=== PATIENT | female | born 1950 | race Caucasian/White ===

== ENCOUNTER 2024-12-31 14:26 | Emergency (ER) | payer MEDICARE, SELFPAY ==
[2024-12-31] VITALS (10 sets, daily range): BP systolic 81–118; BP diastolic 45–60; PULSE 90–99; RESP 14–20; TEMP 35.1–36.8; O2SAT 98–99; BMI 21.8
--- NOTE | 2024-12-31 14:48 | ED.GENADULT ---
HPI - General Adult General Chief complaint: General Medical Stated complaint: SOB,LOW BP 77/59 104/43 PER EMS Time Seen by Provider: 12/31/24 14:45 History of Present Illness ED Provider: Dr. Kraus HPI narrative: 74 y/o F patient; PMH stage IV lung malignancy (declined chemotherapy or radiation); presents from home with report of increasing shortness of breath, lower extremity edema, and generalized weakness. The patient states the shortness of breath worsened over the last one day. The lower extremity edema and weakness have been present for the last few weeks. The patient lives at home and has not been able to walk for the last 24 hours due to her weakness and lower extremity edema. She was due to establish care with Hospice tomorrow. She is interested in a comfort approach without admission to the hospital for further medical therapy/treatments. Related Data Allergies Allergy/AdvReac Type Severity Reaction Status Date / Time lisinopril Allergy Difficulty Verified 12/31/24 14:57 Breathing nitroglycerin Allergy Difficulty Verified 12/31/24 14:57 Breathing Review of Systems Review of Systems: Yes all other systems are reviewed and are negative [facility] Past Medical History Attestation statement: The following information was validated with the patient. Source: unable to obtain Social History Social History Smoked in Last 30 Days: No Use of substances other than those prescribed or required for medical reasons: No Advance Directives: No Advance Directives Information Provided: No Physical Exam ED Vital Signs: Vital Signs - 24 hr 12/31/24 14:52 12/31/24 15:04 12/31/24 15:19 Temperature 96.7 F L Pulse Rate 92 94 Respiratory Rate 20 Blood Pressure 85/56 L 84/52 L Pulse Oximetry 99 Oxygen Delivery Method Room Air 12/31/24 16:44 12/31/24 16:47 12/31/24 19:45 Temperature 98.2 F 97.5 F Pulse Rate 90 93 98 Respiratory Rate 18 17 Blood Pressure 83/45 L 90/52 L 118/53 L Pulse Oximetry 98 98 Oxygen Delivery Method Room Air Room Air 12/31/24 19:50 Temperature 95.2 F L Pulse Rate 97 Respiratory Rate 14 Blood Pressure 81/55 L Pulse Oximetry Oxygen Delivery Method BMI result Body Mass Index 21.8 Patient is afebrile, hypotensive. Const Other: Cachetic General: cooperative HENMT Head: Yes normal to inspection and Yes atraumatic Eyes General: appearance normal, both eyes and all related structures Pupils: Equal, round and reactive pupils present EOM: EOMs intact bilaterally Neck Neck: Yes normal visual inspection, Yes full ROM, Yes supple and No tender Chest Chest palpation & inspection: normal inspection of the chest and normal palpation of entire chest wall Resp Other: Tachypnea, soft spoken but able to complete full sentences. Occasional non-productive cough. Cardio Rate: regular rate Rhythm: regular rhythm Peripheral pulses: Peripheral pulses 2+ throughout GI Inspection: Yes normal to inspection, No Abdominal wall edema and No distended Palpation (GI): Soft to palpation, not firm, nontender, no guarding and not rigid Auscultation: normal bowel sounds Back/Spine/Pelvis Back: No back tenderness Neuro Cranial nerves: Yes Equal, round and reactive pupils present Extrem Other: 3 - 4 + bilateral lower extremity edema Course Course Course Narrative: Patient is afebrile, hypotensive. I discussed goals of care with the patient. She would like to focus on comfort management, but does not feel like she is safe to be at home due to her difficulty with walking. She would prefer placement with hospice involvement. I have consulted PT, case management, and hospice. Patient was unfortunately unable to be seen by PT or hospice today. I have started her on Morphine 15mg q4hr however she is having escalating pain needs. Given this information I will plan on admission for pain control and further hospice evaluation in the morning. I spoke with the hospitalist Dr. Batista regarding this patient, he declined admission and recommended ED observation. Plan: Transition care to Dr. Bernabe Condition: Guarded Medications Administered Generic Name Dose Route Start Last Admin Trade Name Freq PRN Reason Stop Dose Admin Morphine Sulfate 15 mg 12/31/24 16:56 12/31/24 17:23 Morphine Sulfate Immed Release 15 Mg Tablet PO 15 mg Q4H PRN Administration Pain, Moderate(Pain Scale 4-6) Medical Decision Making Independent Interpretation I performed an independent interpretation of an: EKG Interpretation: NSR 92BPM with intra-ventricular conduction delay Discharge Plan Discharge Clinical Impression: Lung cancer Patient Disposition: Still a Patient Print Language: Italian
--- NOTE | 2024-12-31 15:00 | ECG_ITS ---
Test Reason : CP Blood Pressure : */* mmHG Vent. Rate : 92 BPM Atrial Rate : 92 BPM P-R Int : 180 ms QRS Dur : 134 ms QT Int : 408 ms P-R-T Axes : 68 17 92 degrees QTcB Int : 504 ms Normal sinus rhythm Non-specific intra-ventricular conduction block Cannot rule out Septal infarct , age undetermined Abnormal ECG No previous ECGs available Referred By: Halle Kraus Electronically Signed By: PURA REZA
--- NOTE | 2024-12-31 15:19 | PC.NURSE ---
PROVIDER AWARE OF LOW BP
--- NOTE | 2024-12-31 15:20 | MHC.EDTECH ---
Ekg was taken read by the ED provider, Patient is resting quietly in her bed within call rivera in her reach.
--- NOTE | 2024-12-31 15:59 | MHC.CM.ED ---
Received case management consult from Dr Kraus. Patient has Stage 4 Lung Ca. Came to ER from home. Patient is active with [facility]. Was meeting with hospice. Hospice apparently sent patient to ER. No family present. Patient has not been to [facility] before. Patient usually goes to [facility] for care. Referral made to [facility] to see if patient is active with their agency. Continue to monitor for d/c needs.
--- NOTE | 2024-12-31 16:41 | PC.NURSE ---
Per provider, plan is for PT/CM and hospice. No workup. pt wants hospice.
--- NOTE | 2024-12-31 16:42 | PC.NURSE ---
Pt presents to ED via EMS from home, pt has stage 4 lung cancer, [facility] was at house to set up hospice (not currently on). Pt presented due to general weakness, poor mobility, SOB, CP and poor PO intake. Pt is alert and oriented, breathing even and unlabored at rest, skin very pale with poor perfusion. Bilat lower leg edema. BP hypotensive (provider aware). Plan for hospice care.
[2024-12-31] MEDS: Morphine Sulfate Immed Release 15 MG TABLET PO ×2 (17:23→21:20)
--- NOTE | 2024-12-31 17:27 | PC.NURSE ---
Placed on purewick for urine continence. Medicated per MAR for pain, PRN order in per provider
--- OUTSIDE RECORDS SUMMARY | 2024-12-31 18:12 | XMS_ITS | Clinical Summary ---
Author Organization [facility] Address [address] [place] [address] Phone Care Team Providers [facility] [employer] Services Manager Name Role Phone Angel Pillai MD Primary Care Provider [phone] Allergies Active Allergy Reactions Criticality Noted Date Comments Lisinopril 03/07/2022 Nitroglycerin 03/07/2022 Medications metoprolol succinate (TOPROL-XL) 50 mg 24 hr tablet Take 1 tablet (50 mg total) by mouth. 2 Active atenoloL (TENORMIN) 50 mg tablet 3 Active hydroCHLOROthia zide (HYDRODIURIL) 25 mg tablet Take 1 tablet (25 mg total) by mouth 1 (one) time each day. Active famotidine (PEPCID) 40 mg tablet Take 1 tablet (40 mg total) by mouth 1 (one) time each day. Active cyanocobalamin (VITAMIN B-12) 100 mcg tablet Take by mouth. Active Lactobac no.41/Bifidobac t no.7 (PROBIOTIC-10 ORAL) Probiotic Product (Probiotic-10) Chew Tab- Take by mouth. Active NON FORMULARY CALCIUM CARBONATE-KP MIN D (CALCIUM-D OR)- Take by mouth. Active FA/mv,Ca,iron,m in/lycopene/lut (MULTIVITAL ORAL) Take by mouth. 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 Vulvar intraepithelial neoplasia (JANAE) grade 3 0 11/23/2021 Overview (10/21/2024): Inner right introitus - bx JNAAE 3, wide local excision planned Encounters Date Type Department Care Team Description 10/21/2024 9:00 AM EST Office Visit [address] [place] [address] Fredrick Rachel MD History of cancer of vulva (Primary Dx); H/O vulvar dysplasia from Last 3 Months Immunizations Name Administration Dates Next Due Pfizer SARS-CoV-2 COVID-19, mRNA, LNP-S, preservative free 01/16/2021 Surgical History Surgery Date Site/Laterality Comments OTHER SURGICAL HISTORY 02/10/2022 Right PROCEDURE: [place] VULVECTOMY SIMPLE PARTIAL HIP ARTHROPLASTY 2009 Right PROCEDURE: HISTORICAL HIP REPLACEMENT ANKLE SURGERY Left PROCEDURE: HISTORICAL ANKLE SURGERY APPENDECTOMY 2002 PROCEDURE: HISTORICAL APPENDECTOMY OTHER SURGICAL HISTORY 06/21/2022 PROCEDURE: OK VULVECTOMY SIMPLE PARTIAL; COMMENT: Right posterior partial simple vulvectomy OTHER SURGICAL HISTORY 04/09/2024 PROCEDURE: OK VULVECTOMY SIMPLE PARTIAL; COMMENT: Posterior partial simple vulvectomy. Medical History Medical History Date Comments Hypertension DX:Hypertension GERD (gastroesophageal reflux disease) DX:GERD (gastroesophageal reflux disease) Family History Medical History Relation Name Comments Prostate cancer Brother Relation Name Status Comments Brother Social History Tobacco Use Types Packs/Day Years Used Date Smoking Tobacco: Former Smokeless Tobacco: Former Comments Unknown Sex and Gender Information Value Date Recorded Sex Assigned at Not on file Legal Sex Female 5:23 PM EST Gender Identity Not on file Sexual Orientation Not on file Obstetrics History Last Filed Vital Signs Vital Sign Reading Time Taken Comments Blood Pressure 118/81 10/21/2024 8:33 AM EST Pulse 64 10/21/2024 8:33 AM EST Temperature 36.7 ??C (98.1 ??F) 10/21/2024 8:33 AM ES T Respiratory Rate - - Oxygen Saturation - - Inhaled Oxygen Concentration - - Weight 54.9 kg (121 lb) 03/04/2024 8:29 AM EDT Height - - Body Mass Index - - Plan of Treatment Upcoming Encounters Date Type Department Care Team (Late st Contact Info) Description 04/23/2025 8:20 AM EDT Office Visit [facility] [address] [place] [id number] Fredrick Rachel MD [address] [place] [address] Health Maintenance Due Date Last Done Comments Hepatitis A Vaccines (1 of 2 - Risk 2-dose series) 1971 Breast Cancer Screening 01/05/2010 01/06/2008, 01/02 Hepatitis B Vaccines (1 of 3 - Risk 3-dose series) 2012 Cholesterol Screening (Lipid Panel) 10/01/2022 09/04/2002 Colorectal Cancer Screening: Colonoscopy 10/01/2022 Depression Screening 10/01/2022 Falls Risk Assessment 10/01/2022 Hepatitis C Screening 10/01/2022 Lung Cancer Screening (Low Dose CT) 10/01/2022 Osteoporosis Screening (Bone Density Screening) 10/01/2022 05/09/2012, 04/19/2009, 05/07/2007 Social Influencers of Health Screening 10/01/2022 Hypertension/CHF/CAD Annual BMP Blood Test 10/21/2024 12/31/2020, 12/31/2020, 01/29/2009, Additional history exists Medicare Annual Wellness Visit 11/06/2024 11/06/2023 DTaP,Tdap,and Td Vaccines (3 - Td or Tdap) 04/26/2032 04/26/2022, 04/03/2011 Zoster Vaccines Completed 10/24/2021, 07/23, 04/11/2012 Pneumococcal Vaccine: 50+ Years Completed 04/26/2022, 09/18/2017, 04/03/2011 RSV Immunization Patients 60+ Years Old Completed 08/16/2023 COVID-19 Vaccine Completed 07/12/2024, 04/2023, 09/21/2022, Additional history exists Influenza Vaccine Completed 07/12/2024, , 07/11/2022, Additional history exists HIB Vaccines Aged Out No longer eligi ble based on patient's age to complete this topic HPV Vaccines Aged Out No longer eligi ble based on patient's age to complete this topic IPV Vaccines Aged Out No longer eligi ble based on patient's age to complete this topic MMR Vaccines Aged Out No longer eligi ble based on patient's age to complete this topic Meningococcal ACWY Vaccine Aged Out N o longer eligible based on patient's age to complete this topic Meningococcal B Vacine Aged Out No lo nger eligible based on patient's age to complete this topic RSV Immunization Patients Under 20 months Aged Out No longer eligible based on patient's age to complete this topic Varicella Vaccines Aged Out No longer eligible based on patient's age to complete this topic Procedures Procedure Name Priority Date/Time Associated Diagnosis Comments ANNUAL BMP BLOOD TEST Routine 12/31/2020 from Last 3 Months or Most Recently Relevant to Health Maintenance Results * Annual BMP Blood Test (12/31/2020) Annual BMP Blood Test abstracted Historical Provider MD HEALTH MAINTENANCE Final Result from Last 3 Months or Most Recently Relevant to Health Maintenance Insurance MEDICARE [facility] Advance Directives Documents on File Type Date Recorded Patient Manager Psychology Expl anation Health Care Decision (hx) 04/01/2024 HE ALTH CARE PROXY Health Care Decision (hx) 04/01/2024 HE ALTH CARE PROXY Health Care Decision (hx) 06/14/2022 AD KAMINSKI DIRECTIVE Health Care Decision (hx) 06/14/2022 AD KAMINSKI DIRECTIVE Health Care Decision (hx) 06/14/2022 AD KAMINSKI DIRECTIVE Health Care Decision (hx) 06/14/2022 AD KAMINSKI DIRECTIVE Care Teams [facility] [employer] Manager Relationship Specialty Start Date End Date Angel Pillai MD [address] [place] [address] Dr Smith [address] Guzman [id number] PCP - General 01/20/14
--- NOTE | 2024-12-31 19:52 | MHC.EDTECH ---
This pct assumed care of Patient at 1900 ,vitals taken ,Provider ,meghana is aware that Patient rectal temp is 95.2 ,and blood Pressure is 81/55 ,and not able to get 02 sat ,Provider said Patient is on Comfort care measure only .Patient was reposition and boosted up in bed ,warm blanket given .
--- NOTE | 2024-12-31 19:58 | MHC.EDTECH ---
1944 vitals taken ,Patient continue to be calm and cooperative ,had more ice cream ,Parents and sitter continue to be at bedside .
--- NOTE | 2024-12-31 20:55 | PC.NURSE ---
discussed with Dr. Kraus. pt is comfort measures. pain management only
--- NOTE | 2024-12-31 21:04 | PC.NURSE ---
this nurse checked with MD that 'comfort measures only' orders are entered in the EMR. Dr. 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
--- NOTE | 2024-12-31 21:09 | PHA.MEDREC ---
Addendum entered by Justin Porter [facility] 12/31/24 21:19: med rec reviewed Original Note: Pharmacy Consult ? Medication Reconciliation Pharmacy has completed the medication reconciliation. Spoke with patient and she was able to confirm her medications. Patient confirmed her Eliquis 2.5mg tab and confirmed she takes it twice a day. She stated she is taking her Furosemide 20mg tab as needed for Fluid Retention but states it really hasnt been giving her much relief while taking it. She confirmed she took her Eliquis this morning at 1200 and everything else yesterday.
[2024-12-31] MEDS: Docusate Sodium 100 MG CAPSULE PO (21:20)
[2025-01-01] VITALS (11 sets, daily range): RESP 6–22
[2025-01-01] MEDS: Morphine Sulfate Immed Release 15 MG TABLET PO (00:52)
[2025-01-01] MEDS: LORazepam 2 MG/ML VIAL 0.5 MG IVPUSH ×2 (01:05→05:00)
--- NOTE | 2025-01-01 01:08 | PC.NURSE ---
pt acutely anxious, telling this nurse help me. MD Bernabe notified. IV meds ordered. call rivera in reach. pt states she states she feels some relief after sitting at bedside for several minutes following administration. pt still arouses spontaneously, follows commands, speaking clearly.
--- NOTE | 2025-01-01 01:12 | MHC.EDTECH ---
Patient very anxious ,RN aware ,this pct is sitting with Patient to keep her company until meds work ,Patient remain clean and dry .
--- NOTE | 2025-01-01 02:02 | MHC.EDTECH ---
Patient was moved unto a hospital bed for comfort ,Patient was position with Pillows ,RN Balaji is aware that Patient feet are purple and cold .Patient is resting quietly with eyes closed ,All safety measure in Place,Plan of care continue .
--- NOTE | 2025-01-01 02:16 | PC.NURSE ---
switched to hospital bed. repo'd and cushioned bony extremities. pt is more lethargic at this time. no agonal breathing, slight mottling around bilat knee, hands and feet cool to the touch, no urine output this shift. no bladder distension palpated. purewick in place and no pads soiled. trimmer helper arrived at bedside now. pt lying in semi fowlers with nonlabored breathing, eyes closed, pt arousable to voice.
[2025-01-01] MEDS: Morphine Sulfate 2 MG/ML CARTRIDGE 1 MG IVPUSH ×3 (02:32→04:43)
--- NOTE | 2025-01-01 03:49 | MHC.EDTECH ---
0400 rounding done ,Patient sleeping ,breaths are even and unlabored ,Pt remain clean and dry ,J[employer] Worker at bedside .
--- NOTE | 2025-01-01 04:00 | MHC.EDTECH ---
Patient belongings list done .
[2025-01-01] MEDS: LORazepam 2 MG/ML VIAL 1 MG IVPUSH ×2 (06:15→10:09)
--- NOTE | 2025-01-01 06:21 | MHC.EDTECH ---
Patient still did not make any urine ,RN aware ,Patient resting with eyes closed ,Manager Retail continue to be at bedside .
--- NOTE | 2025-01-01 06:27 | PC.NURSE ---
medicated for pain and anxiety/agitation. pt is mostly sleeping but will awake and have episodes of anxiety where she is calling for Pastor Longo who is currently sitting at bedside. at this time patient is lying in semi fowlers position with eyes closed, nonlabored respirations. no grimacing, moaning, or reaching. pt remains anuric
--- NOTE | 2025-01-01 07:11 | PC.NURSE ---
Resumed care of patient at 0700, pastor Longo at bedside with patient so she doesn't have to be alone. Pt is resting comfortably in bed, does stir in agitation with noise and touch. This RN advocated to MD Kraus to get medications ordered at continuous PRN not one time orders, and or at least IV or Liquid as she can no longer swallow a pill. Awaiting further orders at this time, pt resting in the hospital bed, hospice blanket given at this time.
[2025-01-01] MEDS: Morphine Sulfate 2 MG/ML CARTRIDGE IVPUSH ×3 (08:02→11:19)
[2025-01-01] MEDS: Acetaminophen 1,000 MG/100 ML PIGGYBACK 400 MG IV (08:03)
--- NOTE | 2025-01-01 08:52 | MHC.CM.ED ---
Addendum entered by Kasey Loza 01/01/25 09:10: [facility] Referral made for possible GIP admission. Original Note: Patient remains in ER. Currently comfort measures only. Received notification from [facility] that patient is active with their agency. Only contact they have for patient is a friend, Angel Hilliard, tel: [phone]. Spoke with Angel via telephone. He is currently in [place]. He has been friends with the patient for 42 years. He is currently in [place]. He visited patient at her home last week. Patient made arrangements with [facility] last week. Patient has an older brother locally. But patient does not have communication with him. Continue to monitor for d/c needs.
--- NOTE | 2025-01-01 09:08 | PC.NURSE ---
This RN resumed care of patient at 0700, Donta was at bedside throughout the night so the patient didn't have to be alone, sitter currently at bedside to be with patient so she is not alone. This RN advocated to MD. Kraus to get comfort medications changed to help comfort patient. Pt provided hygiene care, including mouth care, pt repositioned in bed at this time she is resting comfortably. This RN/MC/CM worked together to find contacts for patient, CM was able to reach a close friend who did state she has arrangements set up with [facility] in [place]. He is currently on a [employer] ship, see CM note for more information. Awaiting hospice to come in at this time to assess GIP admission at this time. Pt is only groaning in bed, she does close her mouth and bite the swab but is unable to answer questions or make needs known. Pt legs and abdominal area are darkly mottled, no pulses able to be felt in bilat feet d/t swelling and decreased circulation. This RN to contact [facility] at this time to get a referral started and in place.
--- NOTE | 2025-01-01 10:20 | PC.NURSE ---
This RN at bedside to medicate pt as she is starting to groan more loudly. Pt given morphine and ativan. Hospice at bedside, at this time awaiting further information/ verbal consent from family for signing onto hospice. 1:1 remains at bedside to be with patient, oral care continued
--- NOTE | 2025-01-01 10:24 | PC.NURSE ---
This RN did call [facility], this RN spoke with Latesha, Ref #[id number], pt has been declined as she is not currently on a vent. [facility] just requesting a call back from hospital about time of
[2025-01-01] MEDS: Glycopyrrolate 0.2 MG/ML VIAL IVPUSH (10:29)
--- NOTE | 2025-01-01 10:44 | MHC.CM.ED ---
Patient's PCP is Angel Bullard of [facility]. Copy of demographics requested from PCP's office. T/W spoke with Virginia at [facility]. Patient listed her brother, Grupo Frey as the person to contact. Grupo's telephone number is [phone]. Leslye and Amanda from [facility] at patient's bedside to visit. Feel patient would be GIP appropriate. However they would need someone to sign her onto hospice. T/W spoke with Grupo via telephone at [phone]. Grupo lives in [place]. Is agreeable to signing patient onto hospice. Also aware patient is comfort measures only and not doing well. Hospice made aware and asked to reach out to [facility]. Continue to monitor for d/c needs.
--- NOTE | 2025-01-01 11:33 | PC.NURSE ---
This RN at bedside with sitter, morphine given as pt was agonal breathing, HR had dropped into the 20-30s. Provider aware and at bedside.
--- NOTE | 2025-01-01 12:34 | MHC.EDTECH ---
@ 1230PM CALL PLACED TO DR DALIA RUIZ OFFICE @ [phone], TO MAKE THEM AWARE OF THIS PT'S PASSING TIME OF 11:40AM GIVEN TO ROYCE
--- NOTE | 2025-01-01 12:42 | MHC.EDTECH ---
post mortem care completed
== END 2025-01-01 11:40 | disposition expired ==
PROVIDERS: Emergency Provider Emergency Medicine; PCP Internal Medicine
DX: C34.90 Malignant neoplasm of unspecified part of unspecified bronchus or lung (principal); I95.9 Hypotension, unspecified; R06.02 Shortness of breath; R60.0 Localized edema; R07.89 Other chest pain; Z79.899 Other long term (current) drug therapy
CPT/HCPCS: 93005; 96365; 96375; 96376; 99285; J0131; J1596; J2060; J2270

== ENCOUNTER → 2024-12-31 15:00 | Outpatient (BNV) | payer SELFPAY | PROVIDERS: Emergency Provider Emergency Medicine; Visit Provider Internal Medicine | DX: I45.9 Conduction disorder, unspecified (principal) | CPT/HCPCS: 93010 ==